=== PATIENT | male | born 1980 | race Caucasian/White ===

== ENCOUNTER 2023-12-20 05:34 | Emergency (ER) | payer OTHER, SELFPAY ==
[2023-12-20 06:00] VITALS: BP 144/96; PULSE 75; RESP 18; TEMP 37.2; O2SAT 98
[2023-12-20 06:09] VITALS: BP 144/96; PULSE 64; RESP 18; TEMP 37.2; O2SAT 97
--- NOTE | 2023-12-20 07:09 | ED.LOWEXIN ---
HPI - Extremity Injury (Lower) General Chief Complaint: Extremity Injury, Lower Stated Complaint: cut on right leg Time Seen by Provider: 12/20/23 06:58 History of Present Illness HPI Narrative: 43-year-old male presenting with a laceration to his right leg. States that he was playing with his nephew when something hit a shelf and struck his right castillo. Denies any other injuries. Tdap was updated last month when he injured his left hand. Related Data Allergies Allergy/AdvReac Type Severity Reaction Status Date / Time acetaminophen Allergy Mild Unknown Verified 12/20/23 06:08 PROPOXYPHENE NAPSYLATE Allergy Mild Unknown Uncoded 12/20/23 06:08 Review of Systems Review of Systems: All systems reviewed & are unremarkable except as noted in HPI and below Exam Narrative: GENERAL: Well-appearing, in no acute distress HEAD: Normocephalic, atraumatic. EYES: PERRLA and EOMI. ENT: Grossly unremarkable NECK: Supple. CHEST: No respiratory distress. HEART: Regular rate and rhythm. ABDOMEN: Soft, nontender, nondistended EXTREMITIES: Normal range of motion. No edema. SKIN: Warm, dry; 4cm laceration anterior right castillo NEURO: No focal deficits. Alert and oriented x3. PSYCH: Normal mood and affect. Course Vital Signs Vital signs: Vital Signs Temperature 98.9 F 12/20/23 06:00 Pulse Rate 75 12/20/23 06:00 Respiratory Rate 18 12/20/23 06:00 Blood Pressure 144/96 H 12/20/23 06:00 Pulse Oximetry 98 12/20/23 06:00 Oxygen Delivery Room Air 12/20/23 06:00 Temperature 97.6 F 12/20/23 09:39 Pulse Rate 47 L 12/20/23 09:39 Respiratory Rate 16 12/20/23 09:39 Blood Pressure 162/91 H 12/20/23 09:39 Pulse Oximetry 100 12/20/23 09:39 Oxygen Delivery Room Air 12/20/23 06:00 Procedures Laceration Laceration 1: Date: 12/20/23 Time: 10:50 Site: lower extremity Size (cm): 4.5 Description: linear Local Anesthetic: lidocaine 1% and with epi Pre-repair: wound explored, irrigated and irrigated extensively ====== Skin Level ====== Skin layer closed with: nylon Size (cm): 3-0 Number of sutures: 7 Technique: simple, interrupted ====== Subcutaneous Layer ====== ====== Muscle Layer ====== ====== Tendon Layer ====== MDM - Extremity Injury (Lower) [facility] Narrative Medical decision making narrative: 43-year-old male presenting with laceration to his right lower extremity. Vitals stable. Exam remarkable for the above. Laceration repaired without complication. Discussed appropriate wound care. Stitches will need to come out in 10 days. Tdap is up-to-date. Discharged in stable condition. Differential Diagnosis Differential diagnosis: Likely other (Laceration, skin avulsion, right lower extremity injury) Medical Records Attestation: I reviewed the patient's medical records. Critical Care Time Critical Care Time Critical Care Time: No Discharge Plan Discharge Clinical Impression: Laceration of leg, right Patient Disposition: Home, Self-Care Condition: Stable Instructions: Antibiotic Form, Laceration (DC) Additional Instructions: Please keep the laceration clean and dry for 24 hours. After 24 hours, you may shower normally. Let soapy warm water rinse over it but do not scrub. The stitches will need to be removed in 10-14 days. If your symptoms worsen or other concerning symptoms arise, please return to the ER. Follow-up/Referrals: Dai,Hermes Castaneda MD [Primary Care Provider] -
--- NOTE | 2023-12-20 07:46 | PC.NURSE ---
Assumed care of pt. Pt resting
[2023-12-20 09:39] VITALS: BP 162/91; PULSE 47; RESP 16; TEMP 36.4; O2SAT 100
--- NOTE | 2023-12-20 09:39 | PC.NURSE ---
Pt drowsy, arouses to name. Pt states took Percocet 5mg (home med) upon arrival to ER exam room. Laceration irrigated with normal saline, dry gauze dressing applied. Pt tolerated well.
== END 2023-12-20 11:33 | disposition home or self-care (01) ==
PROVIDERS: Emergency Provider Emergency Medicine; PCP Family Medicine
DX: S81.811A Laceration without foreign body, right lower leg, initial encounter (principal); W22.8XXA Striking against or struck by other objects, initial encounter
CPT/HCPCS: 12002; 99282